=== PATIENT | male | born 1975 | race Caucasian/White ===

== ENCOUNTER 2017-03-24 00:09 | Emergency (ER) | payer BC ==
[2017-03-24 00:20] VITALS: BP 135/91
[2017-03-24] MEDS ORDERED: PSEUDOEPHEDRINE 30 MG TABLET PO STA (00:26)
--- NOTE | 2017-03-24 00:47 | ED Physician Documentation ---
PD HPI URI - Stated complaint Stated Complaint: COUGH,DIZZINESS - Chief complaint Chief Complaint: Heent - History obtained from History obtained from: Patient - History of Present Illness Timing - onset: How many weeks ago (4) Timing details: Gradual onset, Still present Associated symptoms: Chills, Nasal congestion, Sinus pain, Dry cough. No: Fever , Rhinorrhea Similar symptoms before: Work up / diagnostics, Treatment Recently seen: Clinic - Additional information Additional information: Patient is a 41 year old male with no significant past medical history who is presenting to the emergency department for dry cough and sinus pain. Patient reports that the symptoms have been going on for the last month or so. Patient thought it might have been mold from a building site or maybe rat droppings, but he never witnessed either he just googled his symptoms. patient has seen two doctors for it. One gave a dose of steroids and one gave a dose of amoxicillin for a sinusitis. Review of Systems Constitutional: reports: Chills. denies: Fever Eyes: denies: Discharge, Irritation Ears: denies: Ear pain, Drainage/discharge Nose: reports: Rhinorrhea / runny nose, Congestion, Sinus pressure / pain Throat: denies: Dental pain / toothache Cardiac: denies: Chest pain / pressure Respiratory: reports: Cough. denies: Wheezing GI: reports: Vomiting (post tussive). denies: Nausea : reports: Reviewed and negative Skin: denies: Rash, Lesions Musculoskeletal: denies: Neck pain, Back pain Neurologic: denies: Generalized weakness, Focal weakness, Numbness, Altered mental status, Headache Immunocompromised: denies: Immunocompromised PD PAST MEDICAL HISTORY - Past Medical History Past Medical History: No - Past Surgical History Past Surgical History: No - Present Medications Home Medications: Ambulatory Orders Medication Instructions Recorded Confirmed Albuterol Sulf [Ventolin Hfa 2 puffs INH Q4HR PRN #1 inhaler 03/24/17 Inhaler] Amox/Clav 875/125 [Augmentin] 1 each PO Q12H #14 tablet 03/24/17 Benzonatate [Tessalon] 100 mg PO TID #20 capsule 03/24/17 - Allergies Allergies/Adverse Reactions: Allergies Allergy/AdvReac Type Severity Reaction Status Date / Time No Known Drug Allergies Allergy Verified 03/24/17 00:34 - Social History Does the pt smoke?: No Smoking Status: Never smoker Does the pt drink ETOH?: No Does the pt have substance abuse?: No - Immunizations Immunizations are current?: No - POLST Patient has POLST: No PD ED PE NORMAL - Vitals Vital signs reviewed: Yes - General General: Alert and oriented X 3, No acute distress, Well developed/nourished - HEENT HEENT: Atraumatic, PERRL, Moist mucous membranes - Neck Neck: Supple, no meningeal sign - Cardiac Cardiac: RRR, No murmur - Respiratory Respiratory: No respiratory distress, Clear bilaterally - Abdomen Abdomen: Soft, Non tender, Non distended - Derm Derm: Normal color, Warm and dry, No rash - Extremities Extremities: No deformity, Normal ROM s pain, No calf tenderness / cord - Neuro Neuro: Alert and oriented X 3, No motor deficit, No sensory deficit, Normal speech Eye Opening: Spontaneous Motor: Obeys Commands Verbal: Oriented GCS Score: 15 PD ED PE EXPANDED - HEENT HEENT: Right frontal sinus TTP, Right maxillary sinus TTP, Nasal congestion Results - Vitals Vitals: Vital Signs - 24 hr 03/24/17 03/24/17 00:12 00:16 Temperature 36.5 C Heart Rate 96 Respiratory 20 Rate Blood Pressure 135/91 H O2 Saturation 97 Oxygen O2 Source Room air - Rads (name of study) chest x-ray Radiology: Final report received (left lower lobe infiltrate) PD MEDICAL DECISION MAKING - ED course Complexity details: reviewed old records, reviewed results, re-evaluated patient , considered differential, d/w patient ED course: Patient was seen and examined at bedside. patient was treated with pseudophed and sent for imaging. When patient returned the results were reviewed and a left lower lobe infiltrate was appreciated. Patient's antibiotics were switched to augmentin. patient required no further work up and was stable for discharge with outpatient follow up. Departure - Departure Disposition: 01 Home, Self Care Clinical Impression: Bronchitis, Pneumonia Condition: Good Instructions: ED Pneumonia Adult Follow-Up: primary,care provider [Other] - Within 1 week Prescriptions: Albuterol Sulf [Ventolin Hfa Inhaler] 2 puffs INH Q4HR PRN #1 inhaler PRN Reason: Wheezing Amox/Clav 875/125 [Augmentin] 1 each PO Q12H #14 tablet Benzonatate [Tessalon] 100 mg PO TID #20 capsule Comments: There was a small area of pneumonia in your left lung. the antibiotic prescribed will cover both pneumonia and a sinus infection. You can use the inhaler as needed for shortness of breath as well as it might help with the cough. You should take over the counter decongestants. You should follow up with your doctor if your symptoms persist. You may return to the emergency department at any time for new, worsening or uncontrollable symptoms. Forms: Activity restrictions
--- NOTE | 2017-03-24 00:53 | XRAY Report ---
EXAM: CHEST RADIOGRAPHY EXAM DATE: 03/24/2017 12:43 AM. CLINICAL HISTORY: Cough for one month. COMPARISON: 11/09/2008. TECHNIQUE: 2 views. FINDINGS: Lungs/Pleura: Minimal reticular opacity at the left lung base posterolaterally, at the site of remote infiltrate. The lungs are otherwise clear. No pleural effusion. No pneumothorax. Mediastinum: Heart and mediastinal contours are unremarkable. Other: None. IMPRESSION: Minimal reticular opacity at the left lung base posterolaterally, at the site of remote i nfiltrate, likely minimal scarring. [facility] Referring Provider Line: [phone] SITE ID: [id number]
== END 2017-03-24 01:07 | disposition home or self-care (01) ==
LOC: ED 00:09
DX: J40 Bronchitis, not specified as acute or chronic (principal); J18.9 Pneumonia, unspecified organism
CPT/HCPCS: 71046; 99283; 99284; A9270